=== PATIENT | male | born 1970 | race Caucasian/White ===

== ENCOUNTER 2018-01-12 11:55 | Emergency (ER) | payer OTHER ==
[~2018-01-12] VITALS: Ht 182.9 cm; Wt 93.0 kg
--- NOTE | 2018-01-12 13:20 | ED Upper Extremity ---
General Chief Complaint: Upper Extremity Stated Complaint: R ARM PAIN/LIFTING PLYWOOD AND FELT PAIN Nursing Triage Note: PT AMBULATES INTO THE ED, STATES HE WAS LOADING PLYWOOD ROUGHLY AN HOUR AGO WHEN HE FELT A SENSATION LIKE SOMEONE STABBING HIM WITH A HOT KNIFE RIGHT IN HIS R ELBOW, WHEN EXPOSED, THE R BICEP IS NOTED TO BE BALLED UP INTO THE PROXIMAL END OF THE HUMEROUS. Nursing Sepsis Screen: No Definite Risk History of Present Illness Date Seen by Provider: Jan 12, 2018 Time Seen by Provider: 13:00 Initial Comments 47-year-old male presents for right elbow pain. He was lifting a sheet of plywood when he felt a stabbing sensation in his right elbow. He denies any previous history of right elbow problems. He's had a right shoulder injection several years ago by Dr Garcia. He denies paresthesias in the right upper extremity. No additional injuries. He has not taken any medications since the injury and denies need for analgesics at this time. Pain 3/. Obvious Popey deformity right upper arm. Onset: just prior to arrival Pain/Injury Location: right elbow Method of Injury: other (Lifting wood) Modifying Factors: Improves With Rest Allergies and Home Medications Allergies Coded Allergies: No Known Drug Allergies (Unverified , 01/12/18) Home Medications Tramadol HCl 50 Mg Tablet, 50 MG PO Q8H Prescribed by: MAKI GARZA on 01/12/18 1321 Patient Home Medication List Home Medication List Reviewed: Yes Review of Systems Constitutional: no symptoms reported, see HPI Musculoskeletal: see HPI, muscle pain (right biceps, distal insertion site) All Other Systems Reviewed Negative Unless Noted: Yes Past Asionte-Zcahjm-Ujnpaj Hx Past Med/Social Hx: Reviewed Nursing Past Med/Soc Hx Patient Social History Alcohol Use: Occasionally Uses Alcohol Beverage of Choice: Beer Recreational Drug Use: No Smoking Status: Never a Smoker Recent Foreign Travel: No Contact w/Someone Who Travel: No Recent Infectious Disease Expo: No Recent Hopitalizations: No Immunizations Up To Date PED Vaccines UTD: Yes Seasonal Allergies Seasonal Allergies: No Past Medical History Surgeries: Yes (R HAND INDEX FINGER AMBUTATED) Respiratory: No Cardiac: No Neurological: No Genitourinary: No Gastrointestinal: No Musculoskeletal: No Endocrine: No HEENT: No Cancer: No Psychosocial: No Blood Disorders: No Physical Exam Vital Signs Vital Signs - First Documented 01/12/18 12:38 Temp 98.0 Pulse 70 Resp 20 B/P (MAP) 143/95 (111) Pulse Ox 95 O2 Delivery Room Air Capillary Refill : Less Than 3 Seconds Height, Weight, BMI Height: 6'0" Weight: 205lbs. oz. 92.326814fj; BMI Method:Stated General Appearance: WD/WN, no apparent distress Neck: non-tender, full range of motion, supple, normal inspection Cardiovascular: normal peripheral pulses, regular rate, rhythm, no murmur Respiratory: chest non-tender, lungs clear, normal breath sounds, no respiratory distress, no accessory muscle use Shoulder: normal inspection, non-tender, no evidence of injury, normal ROM ( right); No pain (No pain at Prox biceps) Elbow/Forearm: Right, asymmetry, limited ROM (trace limitation of motion right elbow. 4+/5 resisted flexion, 5/5 extension. Trace weakness with resisted supination. Defect appreciated at distal biceps insertion site, with pain at distal bicep), pain, soft tissue tenderness, swelling (positive John sign) Wrist: Yes normal inspection, Yes non-tender, Yes no evidence of injury, Yes normal ROM Hand: normal inspection, non-tender, no evidence of injury, normal ROM, Right Neurologic/Tendon: normal sensation, normal motor functions Neurologic/Psychiatric: no motor/sensory deficits, alert, normal mood/affect, oriented x 3 Skin: normal color, warm/dry Progress/Results/Core Measures Results/Orders My Orders Orders - MAKI GARZA Elbow, Right, 3 Views (01/12/18 13:12) Vital Signs/I&O 01/12/18 01/12/18 12:38 14:00 Temp 98.0 98.1 Pulse 70 62 Resp 20 20 B/P (MAP) 143/95 (111) 121/85 (97) Pulse Ox 95 96 O2 Delivery Room Air Room Air Blood Pressure Mean: 111 Progress Progress Note : Time: 13:00 Progress Note Patient seen and evaluated, concerned for a distal biceps tendon rupture right elbow. We'll obtain x-rays of the right elbow and reevaluate. Patient denies need for analgesics. [address] Garcia, to call office tomorrow for appt. 1345 x-ray results reviewed reviewed with the patient and his spouse. Robert wrap applied to the right elbow, ice pack in place and sling applied. 1350 discharge instructions and return precautions reviewed with the patient. All questions answered. Diagnostic Imaging Diagonstic Imaging: Xray Plain Films/CT/US/NM/MRI: elbow Comments NAME: GEETA NIX [facility] REC#: [id number] PT STATUS: REG ER : 1970 PHYSICIAN: MAKI GARZA ADMIT DATE: 01/12/18/ER Draft Date of Exam:01/12/18 ELBOW, RIGHT, 3 VIEWS Indication: Injury to right elbow. Time of exam: 1:49 PM 3 views of the right elbow demonstrate normal alignment. The joint spaces are maintained. No fracture, dislocation or effusion is seen. Impression: No acute abnormality is detected. Dictated on workstation # [id number] Dict: 01/12/18 1333 Trans: 01/12/18 1335 CVB [id number] Interpreted by: JIE SHAH MD Electronically signed by: Reviewed: Reviewed by Me Departure Impression Primary Impression: Rupture of distal biceps tendon Qualified Codes: S46.211A - Strain of muscle, fascia and tendon of other parts of biceps, right arm, initial encounter Disposition: HOME, SELF-CARE Condition: Improved Departure-Patient Inst. Referrals: JEREMY MEDINA DO (PCP/Family) Primary Care Physician Patient Instructions: Tendonitis (DC) Add. Discharge Instructions: You may take Tylenol 1000 mg every 6-8 hours as needed for pain. For more severe pain, you may take Tramadol every 8 hours. Ice to right elbow 20 minutes every 2 hours while awake. Wear sling for comfort, right arm. May remove for showering and dressing. Call Dr. Garcia's office tomorrow morning for follow-up appointment, [phone]. Do not take any anti-inflammatory (advil, iburprofen, aleve, etc) or aspirin medications. All discharge instructions reviewed with patient and/or family. Voiced understanding. Scripts Tramadol HCl (Tramadol HCl) 50 Mg Tablet 50 MG PO Q8H, #12 TAB 0 Refills Prov: MAKI GARZA 01/12/18 Copy Copies To 1: JEREMY MEDINA DO Copies To 2: RAMA GARCIA MD, AMY ARNP Jan 12, 2018 13:20
[2018-01-12] MEDS ORDERED: TRAM50TA2 PO (13:21)
--- NOTE | 2018-01-12 13:36 | Diagnostic Imaging Report ---
Indication: Injury to right elbow. Time of exam: 1:49 PM 3 views of the right elbow demonstrate normal alignment. The joint spaces are maintained. No fracture, dislocation or effusion is seen. Impression: No acute abnormality is detected. Dictated by: Dictated on workstation # [id number]
[2018-01-12 14:00] VITALS: BP 121/85
== END 2018-01-12 14:00 | disposition home or self-care (01) ==
LOC: EDUNIT# 11:55 → ER 11:56
DX: S46.211A Strain of muscle, fascia and tendon of other parts of biceps, right arm, initial encounter (principal); X50.0XXA Overexertion from strenuous movement or load, initial encounter
CPT/HCPCS: 73080

== ENCOUNTER 2022-02-13 05:33 | Outpatient (CLI) | payer OTHER ==
[~2022-02-13] VITALS: Ht 182.9 cm; Wt 96.2 kg
[~2022-02-13 05:33] MED LIST: TRM50T PO
[2022-02-14] MEDS ORDERED: POTA99CA PO (11:05)
[2022-02-14] MEDS ORDERED: MULT-1136 PO (11:05)
[2022-02-14] MEDS ORDERED: NF-VITD400 PO (11:05)
[2022-02-14] MEDS ORDERED: OMEG100032 PO (11:05)
[2022-02-14] MEDS ORDERED: MAGN400C PO (11:05)
== END 2022-02-14 11:10 ==
LOC: PREOP 05:33
PROVIDERS: ATTEND Surgery
DX: Z01.818 Encounter for other preprocedural examination (principal); Z12.11 Encounter for screening for malignant neoplasm of colon

== ENCOUNTER 2022-02-20 08:28 | Day surgery (SDC) | payer OTHER ==
[2022-02-20] VITALS (7 sets, daily range): BP systolic 101–156; BP diastolic 62–94
[~2022-02-20] VITALS: Ht 182.9 cm; Wt 96.2 kg
[~2022-02-20 08:28] MED LIST changes: +LACTATED RINGERS 1,000 ML IV STA; +MAGN400C PO; +MULT-1136 PO; +NF-VITD400 PO; +OMEG100032 PO; +POTA99CA PO
[2022-02-20] MEDS ORDERED: MIDAZOLAM 2 MG/2 ML (VERSED) VIAL ONE (09:13)
[2022-02-20] MEDS ORDERED: PROPOFOL INJECTION 50 ML IV ONE (09:13)
--- NOTE | 2022-02-20 09:39 | Discharge Inst-Simple/Standard ---
Discharge Inst-Standard Patient Instructions/Follow Up Plan of Care/Instructions/FU: Follow-up with Dr. Hidalgo in 5 years for repeat colonoscopy; if any issues before that, please be seen at that time Activity as Tolerated: Yes Discharge Diet: Regular Diet DAKSHA HIDALGO DO Feb 20, 2022 09:38
--- NOTE | 2022-02-20 10:34 | Anesthesia-General Post-Op ---
MAC Patient Condition Mental Status/LOC: Same as Preop Cardiovascular: Satisfactory Nausea/Vomiting: Absent Respiratory: Satisfactory Pain: Controlled Complications: Absent Post Op Complications Complications None Follow Up Care/Instructions Patient Instructions None needed. Anesthesiology Discharge Order Discharge Order Patient is doing well, no complaints, stable vital signs, no apparent adverse anesthesia problems. No complications reported per nursing. ROLY EASON CRNA Feb 20, 2022 10:34
--- NOTE | 2022-02-20 18:23 | OPERATIVE REPORT ---
DATE OF SERVICE: 02/20/2022 PREOPERATIVE DIAGNOSIS: Screening colonoscopy, family history of colon cancer. POSTOPERATIVE DIAGNOSIS: Normal colon. PROCEDURE: Colonoscopy. SURGEON: Daksha Hidalgo DO ANESTHESIA: Per FLUOROSCOPE OPERATOR. ESTIMATED BLOOD LOSS: None. COMPLICATIONS: None. INDICATIONS: The patient is a 51-year-old male with his family history of colon cancer. He understands risks and benefits of procedure and wishes to proceed. Consent was signed and in the chart. DESCRIPTION OF PROCEDURE: The patient taken to endoscopy suite, placed in left lateral position and a timeout was performed. Digital rectal exam was performed. No palpable polyps, masses or ulcerations. Scope was inserted in the rectum and advanced all the way to the cecum with minimal difficulty. Prep was adequate. Scope was slowly retracted back. No polyps, masses or ulcerations within the cecum, ascending, transverse, descending and sigmoid colon. Once in the rectum, scope was retroflexed noting no other pathology except for some slight internal hemorrhoids. Scope was returned to its normal position and slowly withdrawn to completely removed. The patient tolerated the procedure well without complications. He was taken to recovery room in stable condition. RECOMMENDATIONS: The patient will need repeat colonoscopy in 5 years, any issues before that be seen at that time. Job ID: [id number] DocumentID: [id number] Dictated Date: 02/20/2022 09:37:53 Chief Strategy Officer Date: 02/20/2022 18:21:00 Dictated By: DAKSHA HIDALGO DO
== END 2022-02-20 10:30 | disposition home or self-care (01) ==
LOC: ENDO 08:28
PROVIDERS: ATTEND Surgery
DX: Z12.11 Encounter for screening for malignant neoplasm of colon (principal); K64.8 Other hemorrhoids; Z80.0 Family history of malignant neoplasm of digestive organs; Z89.021 Acquired absence of right finger(s)